=== PATIENT | female | born 1935 | race Caucasian/White ===

== ENCOUNTER 2018-04-04 22:50 | Inpatient (IN) | payer MEDICARE, BC, MEDICAID ==
[~2018-04-04] VITALS: Ht 167.6 cm; Wt 74.0 kg
[~2018-04-04 22:50] MED LIST: NORepinephrine bitartrate 8 MG in NS 250 ML BAG (32 mcg/ml) IV ONE; atropine 0.1mg/ml 10ml syringe ONE; epiNEPHrine 0.1mg/ml 10ml syringe ONE; rocuronium 10mg/ml inj IV ONE; sod chloride 0.9% 10ml flush syringe IV ONE
[2018-04-04] MEDS ORDERED: naloxone 2mg/2ml inj IV ONE (22:55)
[2018-04-04] MEDS ORDERED: normal saline 1000ml 1,000 ML IV ONE ×2 (23:00→23:30)
[2018-04-04 23:14] LABS: HEMOGLOBIN 13.5 g/dl (12.0-16.0); MEAN CORPUSCULAR HEMOGLOBIN 29.2 PG (27.0-31.0); MEAN CORPUSCULAR HGB CONC 33.7 % (33.0-36.5); MEAN CORPUSCULAR VOLUME 86.8 FL (78-98); MEAN PLATELET VOLUME 8.8 FL (7.4-10.4); PLATELET COUNT 383 X10'3 (140-440); RED BLOOD COUNT 4.61 X10'6 (4.20-5.60); RED CELL DISTRIBUTION WIDTH 16.4 % (11.5-14.5)
[2018-04-04 23:15] LABS: ABG BASE EXCESS -7.2 mmol/L (-2.0-3.0); ABG HCO3 21.4 mmol/L (22.0-26.0); ABG OXYGEN SATURATION 99.2 % (95-98); ABG PCO2 (T) 56.1 mmHg (32.0-45.0); ABG PH (T) 7.198 (7.350-7.450); ABG PO2 (T) 251.4 mmHg (83-108); ALLEN'S TEST Positive; FCOHb 0.3 % (0.5-1.5); FMetHb 0.1 % (0.3-1.12); FO2Hb 98.8 % (94-100); MINUTE VOLUME 7 L/min; PATIENT TEMPERATURE 36.7; PEEP 5 cm H2O; RESPIRATORY RATE 16 b/min; TIDAL VOLUME 425 mL; TOTAL HEMOGLOBIN 13.1 G/dl (12.0-16.0)
[2018-04-04 23:22] LABS: WHITE BLOOD COUNT 25.4 X10'3 (4.5-11.0)
[2018-04-04 23:26] LABS: INR 1.1 INR; PARTIAL THROMBOPLASTIN TIME 31 SECONDS (22-32); PROTHROMBIN TIME 11.2 SECONDS (9.0-12.0)
[2018-04-04 23:30] LABS: ALANINE AMINOTRANSFERASE 22 U/L (12-78); ALBUMIN 3.6 G/DL (3.4-5.0); ALBUMIN/GLOBULIN RATIO 1.2 (1.1-1.5); ALKALINE PHOSPHATASE 77 IU/L (46-116); ANION GAP 13 (8-16); ASPARTATE AMINO TRANSFERASE 20 U/L (10-37); BILIRUBIN,TOTAL 0.3 MG/DL (0.1-1.0); BLOOD UREA NITROGEN 13 MG/DL (7-18); BUN/CREATININE RATIO 14.3 (6.6-38.0); CALCIUM 8.5 MG/DL (8.5-10.1); CHLORIDE 93 MMOL/L (99-107); CREATININE 0.91 MG/DL (0.40-0.90); GLUCOSE 277 MG/DL (70-104); POTASSIUM 3.6 MMOL/L (3.5-5.1); SODIUM 132 MMOL/L (135-145); TOTAL CARBON DIOXIDE 25.8 MMOL/L (24-32); TOTAL PROTEIN 6.7 G/DL (6.4-8.2); eGFR 59 ML/MIN
[2018-04-04] MEDS ORDERED: piperacillin/tazo 3.375gm/50ml 50 ML IV ONE (23:30)
[2018-04-04 23:32] LABS: TOTAL CELLS COUNTED 100
[2018-04-04 23:33] LABS: PLATELET ESTIMATE NORMAL; TROPONIN I 0.09 NG/ML (0.0-0.05)
[2018-04-04 23:56] LABS: LACTIC SEPSIS 6.5 MMOL/L (0.4-2.0)
[2018-04-05] VITALS (9 sets, daily range): BP systolic 57–132; BP diastolic 39–74
[2018-04-05 00:03] LABS: CLARITY,URINE CLEAR (Clear); COLOR,URINE YELLOW (Yellow); GLUCOSE, URINE 500 mg/dl (Neg); KETONES,URINE TRACE mg/dl (Neg); LEUKOCYTE ESTERASE ,URINE NEGATIVE (Neg); NITRITES, URINE NEGATIVE (Neg); OCCULT BLOOD,URINE TRACE-INTACT (Neg); PROTEIN,URINE 100 mg/dl (Neg); UROBILINOGEN,URINE 0.2 E.U/dL (0.2-1.0)
[2018-04-05 00:09] LABS: UA COLLECTION TYPE FOLEY CATH
[2018-04-05 00:11] LABS: RBC,URINE 0-2 /HPF (0-2); SQUAMOUS EPITHELIAL CELL,UR FEW /LPF (FEW); WBC,URINE 0-4 /HPF (0-4)
[2018-04-05 00:12] LABS: BACTERIA,URINE FEW /HPF (Neg)
[2018-04-05 00:15] LABS: URINE AMPHETAMINE SCREEN NEGATIVE (Neg); URINE BARBITUATE SCREEN NEGATIVE (Neg); URINE BENZODIAZEPINES SCREEN POSITIVE (Neg); URINE CANNABINOID SCREEN NEGATIVE (Neg); URINE COCAINE SCREEN NEGATIVE (Neg); URINE METHADONE SCREEN NEGATIVE (Neg); URINE OPIATE SCREEN NEGATIVE (Neg); URINE PHENCYCLIDINE SCREEN NEGATIVE (Neg)
[2018-04-05] MEDS ORDERED: levetiracetam inj 1,500 MG in normal saline 100ml IV soln 85 ML IV ONE (00:35)
[2018-04-05] MEDS ORDERED: tranexamic acid 100mg/ml inj. IV ONE (00:50)
[2018-04-05] MEDS ORDERED: tranexamic acid inj. 720 MG in normal saline 100ml IV soln 92.8 ML IV ONE (00:55)
[2018-04-05] MEDS ORDERED: POTA10TA19 PO (01:10)
[2018-04-05] MEDS ORDERED: ALPR2TAB PO (01:10)
[2018-04-05] MEDS ORDERED: MAGN400O6 PO (01:10)
[2018-04-05] MEDS ORDERED: ACET-2119 PO (01:10)
[2018-04-05] MEDS ORDERED: ATOR20TA PO (01:10)
[2018-04-05] MEDS ORDERED: ASPI81TA52 PO (01:10)
[2018-04-05] MEDS ORDERED: FLUO20CA39 PO (01:10)
[2018-04-05] MEDS ORDERED: FURO-149 PO (01:10)
[2018-04-05] MEDS ORDERED: ATEN-169 PO (01:10)
[2018-04-05] MEDS ORDERED: METF500T PO (01:10)
[2018-04-05] MEDS ORDERED: INSU100C4 SQ (01:10)
[2018-04-05] MEDS ORDERED: RIVA20TA PO (01:10)
[2018-04-05] MEDS ORDERED: TRAM50TA2 PO (01:10)
[2018-04-05] MEDS ORDERED: LISI-600 PO (01:10)
[2018-04-05] MEDS ORDERED: DULR RC (01:10)
[2018-04-05] MEDS ORDERED: INSU100V9 SQ (01:10)
[2018-04-05] MEDS ORDERED: MULT-1085 PO (01:10)
[2018-04-05] MEDS ORDERED: FLUO10CA28 PO (01:10)
[2018-04-05] MEDS ORDERED: NA P133E4 RC (01:10)
[2018-04-05] MEDS ORDERED: MESSAGE TO PHARMACY PO ONE (01:15)
[2018-04-05] MEDS ORDERED: NORepinephrine 8mg/ 250ml NS 250 ML IV PRN (01:15)
[2018-04-05] MEDS ORDERED: FENTANYL-0.9 % NACL/PF 100 ML IV PRN (01:15)
[2018-04-05] MEDS ORDERED: insulin Lispro (HumaLOG) vial - multi-dose SQ SCH (01:15)
[2018-04-05] MEDS ORDERED: midazolam 100mg in NS 100ml 100 ML IV PRN (01:15)
[2018-04-05] MEDS ORDERED: potassium Cl 40MEQ/250ML bag 250 ML IV PRN ×2 (01:15)
[2018-04-05] MEDS ORDERED: glucagon, human recombinant 1mg kit SUBCUT PRN (01:15)
[2018-04-05] MEDS ORDERED: ondansetron/PF 4mg/2ml inj IV PRN (01:15)
[2018-04-05] MEDS ORDERED: dextrose ORAL solution 15 GM/59 ML bottle PO PRN ×2 (01:15)
[2018-04-05] MEDS ORDERED: normal saline 1000ml 1,000 ML IV SCH (01:15)
[2018-04-05] MEDS ORDERED: dextrose 50%-water 50ml dispensing syringe IV PRN ×2 (01:15)
[2018-04-05] MEDS ORDERED: ipratropium/albuterol 3ml nebule NEB PRN (01:15)
[2018-04-05] MEDS ORDERED: acetaminophen 650mg rectal suppository RC PRN (01:15)
[2018-04-05] MEDS ORDERED: acetaminophen 325mg tablet PO PRN ×2 (01:15)
[2018-04-05] MEDS ORDERED: bisacodyl 10mg suppository rectal RC PRN (01:40)
[2018-04-05] MEDS: ipratropium/albuterol 3ml nebule NEB SCH ×2 (03:15→08:03)
[2018-04-05 03:30] LABS: ABG BASE EXCESS 0.6 mmol/L (-2.0-3.0); ABG HCO3 21.1 mmol/L (22.0-26.0); ABG OXYGEN SATURATION 98.9 % (95-98); ABG PCO2 (T) 21.7 mmHg (32.0-45.0); ABG PO2 (T) 153.9 mmHg (83-108); ALLEN'S TEST Positive; FCOHb 0.3 % (0.5-1.5); FMetHb 0.1 % (0.3-1.12); FO2Hb 98.5 % (94-100); MINUTE VOLUME 8 L/min; PATIENT TEMPERATURE 35.6; PEEP 5 cm H2O; RESPIRATORY RATE 20 b/min; RESPIRATORY RATE (OBSERVED) 20 b/min; TIDAL VOLUME 425 mL; TOTAL HEMOGLOBIN 11.9 G/dl (12.0-16.0)
[2018-04-05] MEDS ORDERED: DOPamine 400mg/D5W 250ml 250 ML IV SCH (03:45)
[2018-04-05] MEDS ORDERED: atropine 1 MG/1 ML vial IV ONE (03:45)
[2018-04-05 04:22] LABS: BASOPHILS % (AUTO) 0.2 % (0-1); EOSINOPHILS # (AUTO) 0.2 X10'3 (0-0.9); EOSINOPHILS % (AUTO) 1.3 % (0-6); HEMATOCRIT 32.7 % (35.0-45.0); HEMOGLOBIN 11.1 g/dl (12.0-16.0); LYMPHOCYTES # (AUTO) 1.9 X10'3 (1.1-4.8); LYMPHOCYTES % (AUTO) 14.4 % (21-51); MEAN CORPUSCULAR HEMOGLOBIN 29.1 PG (27.0-31.0); MEAN CORPUSCULAR HGB CONC 33.9 % (33.0-36.5); MEAN CORPUSCULAR VOLUME 85.8 FL (78-98); MEAN PLATELET VOLUME 8.3 FL (7.4-10.4); MONOCYTES # (AUTO) 0.9 X10'3 (0-0.9); MONOCYTES % (AUTO) 6.8 % (2-12); NEUTROPHILS # (AUTO) 10.1 X10'3 (1.8-7.7); NEUTROPHILS % (AUTO) 77.3 % (42-75); PLATELET COUNT 286 X10'3 (140-440); RED BLOOD COUNT 3.81 X10'6 (4.20-5.60); RED CELL DISTRIBUTION WIDTH 16.4 % (11.5-14.5); WHITE BLOOD COUNT 13.1 X10'3 (4.5-11.0)
[2018-04-05 04:32] LABS: INR 1.1 INR; PARTIAL THROMBOPLASTIN TIME 27 SECONDS (22-32); PROTHROMBIN TIME 11.6 SECONDS (9.0-12.0)
[2018-04-05 04:35] LABS: ALANINE AMINOTRANSFERASE 19 U/L (12-78); ALBUMIN 2.8 G/DL (3.4-5.0); ALBUMIN/GLOBULIN RATIO 1.2 (1.1-1.5); ALKALINE PHOSPHATASE 62 IU/L (46-116); ANION GAP 13 (8-16); ASPARTATE AMINO TRANSFERASE 21 U/L (10-37); BILIRUBIN,TOTAL 0.4 MG/DL (0.1-1.0); BLOOD UREA NITROGEN 13 MG/DL (7-18); BUN/CREATININE RATIO 18.6 (6.6-38.0); CALCIUM 7.4 MG/DL (8.5-10.1); CHLORIDE 99 MMOL/L (99-107); GLUCOSE 226 MG/DL (70-104); MAGNESIUM 1.5 MG/DL (1.5-2.4); PHOSPHORUS 1.6 MG/DL (2.3-4.5); POTASSIUM 3.2 MMOL/L (3.5-5.1); SODIUM 135 MMOL/L (135-145); TOTAL CARBON DIOXIDE 23.3 MMOL/L (24-32); TOTAL PROTEIN 5.2 G/DL (6.4-8.2); eGFR 80 ML/MIN
[2018-04-05] MEDS ORDERED: LORazepam 2 mg/ml vial IV PRN ×2 (04:40→10:55)
[2018-04-05 04:53] LABS: OSMOLALITY 275 MOSM/K (280-300)
[2018-04-05] MEDS ORDERED: K, MAG and/or Phos replacement - Verify level? MC SCH (08:00)
[2018-04-05] MEDS ORDERED: pantoprazole 40 MG vial IV SCH (08:00)
[2018-04-05] MEDS ORDERED: docusate sodium 100mg/10ml UD cup PO SCH (08:00)
[2018-04-05] MEDS ORDERED: piperacillin/tazo 3.375gm/50ml 50 ML IV SCH (08:00)
[2018-04-05] MEDS ORDERED: morphine 4 MG/ML inj SYRINge IV PRN (10:55)
[2018-04-05] MEDS ORDERED: vancomycin/NS 1 GM ADD-VANTAGE 250 ML IV SCH ×2 (17:00→23:00)
[2018-04-05] MEDS ORDERED: insulin glargine (Lantus) pen - multi-dose SQ SCH (21:00)
[2018-04-05] MEDS ORDERED: atorvastatin 20mg tablet PO SCH (21:00)
[2018-04-06] MEDS ORDERED: mineral oil/petrolatum ophthal oint EACHEYE SCH (02:00)
[2018-04-06] MEDS ORDERED: VANCOMYCIN LEVEL IV ONE (16:30)
[2018-04-07] MEDS ORDERED: lactulose 20gm/30ml cup PO PRN (01:15)
== END 2018-04-05 13:00 | disposition expired | DRG 871 ==
LOC: ER 22:51 → ED HOLD 04-05 01:15 → ICU 2S 04-05 02:07
PROVIDERS: ADMIT Internal Medicine Critical Care Medicine
PROC: 5A1935Z Respiratory Ventilation, Less than 24 Consecutive Hours (ICD-10-PCS; principal; 2018-04-04)
PROC: 0BH17EZ Insertion of Endotracheal Airway into Trachea, Via Natural or Artificial Opening (ICD-10-PCS; 2018-04-04)
PROC: 06HY33Z Insertion of Infusion Device into Lower Vein, Percutaneous Approach (ICD-10-PCS; 2018-04-04)
DX: A41.9 Sepsis, unspecified organism (principal); J69.0 Pneumonitis due to inhalation of food and vomit; J96.20 Acute and chronic respiratory failure, unspecified whether with hypoxia or hypercapnia; R40.20 Unspecified coma; I69.354 Hemiplegia and hemiparesis following cerebral infarction affecting left non-dominant side; I62.9 Nontraumatic intracranial hemorrhage, unspecified; E78.00 Pure hypercholesterolemia, unspecified; E78.5 Hyperlipidemia, unspecified; I10 Essential (primary) hypertension; J44.9 Chronic obstructive pulmonary disease, unspecified; F41.9 Anxiety disorder, unspecified; H26.9 Unspecified cataract; R40.2430 Glasgow coma scale score 3-8, unspecified time; Z51.5 Encounter for palliative care; Z74.01 Bed confinement status; Z79.899 Other long term (current) drug therapy; Z79.01 Long term (current) use of anticoagulants; Z79.4 Long term (current) use of insulin; Z79.82 Long term (current) use of aspirin
CPT/HCPCS: 36415; 36556; 36600; 70450; 71045; 80053; 80305; 80320; 81001; 81003; 82140; 82570; 82803; 82948; 83036; 83605; 83735; 83930; 83935; 84100; 84145; 84300; 84484; 85018; 85025; 85610; 85730; 86885; 86900; 86901; 87040; 87070; 93005; 94002; 94003; 94640; 94760; 96374; 96375; 99291; 99292; A6213; A7015; J0171; J0461; J1265; J1815; J1953; J2060; J2250; J2270; J2543; J3370; J3480; J7030; J7060